=== PATIENT | male | born 1955 | race Caucasian/White ===

== ENCOUNTER 2023-03-04 09:13 | Observation (INO) | payer BC, MEDICAID ==
[2023-02-25 13:57] LABS: BASOPHILS # (AUTO) 0.1 X10'3 (0-0.2); BASOPHILS % (AUTO) 0.8 % (0-1); EOSINOPHILS # (AUTO) 0.1 X10'3 (0-0.9); EOSINOPHILS % (AUTO) 1.7 % (0-6); LYMPHOCYTES # (AUTO) 1.3 X10'3 (1.1-4.8); LYMPHOCYTES % (AUTO) 19.4 % (21-51); MEAN CORPUSCULAR HEMOGLOBIN 29.1 PG (27.0-31.0); MEAN CORPUSCULAR HGB CONC 32.4 g/dL (33.0-36.5); MEAN CORPUSCULAR VOLUME 89.9 FL (78-98); MEAN PLATELET VOLUME 8.9 FL (7.4-10.4); MONOCYTES # (AUTO) 0.5 X10'3 (0-0.9); NEUTROPHILS # (AUTO) 4.7 X10'3 (1.8-7.7); NEUTROPHILS % (AUTO) 70.1 % (42-75); PRE OP HEMATOCRIT 43.5 % (42.0-52.0); PRE OP HEMOGLOBIN 14.1 g/dL (14.0-17.9); PRE OP PLATELET COUNT 284 X10'3 (140-440); PRE OP WHITE BLOOD COUNT 6.7 10'3 (4.8-10.8); RED BLOOD COUNT 4.84 X10'6 (4.70-6.10); RED CELL DISTRIBUTION WIDTH 14.3 % (11.5-14.5)
[2023-02-25 14:13] LABS: ALBUMIN 4.1 G/DL (3.4-5.0); ALBUMIN/GLOBULIN RATIO 1.1 (1.1-1.5); ALKALINE PHOSPHATASE 95 IU/L (46-116); BLOOD UREA NITROGEN 36 MG/DL (7-18); BUN/CREATININE RATIO 30.3 (10.0-20.0); CALCIUM 9.6 MG/DL (8.5-10.1); CREATININE 1.19 MG/DL (0.60-1.10); PRE OP ALT 22 U/L (30-65); PRE OP AST 16 U/L (10-37); PRE OP BILIRUB, TOTAL 0.3 MG/DL (0.0-1.0); PRE OP GLUCOSE 108 MG/DL (70-104); TOTAL CARBON DIOXIDE 28.4 MMOL/L (24-32); TOTAL PROTEIN 7.7 G/DL (6.4-8.2); eGFR 61 ML/MIN
[2023-02-25 14:16] LABS: CHLORIDE 102 MMOL/L (99-107); PRE OP ANION GAP 9 (8-16); PRE OP POTASSIUM 4.3 MMOL/L (3.4-5.1); PRE OP SODIUM 139 MMOL/L (135-145)
[2023-03-04] VITALS (23 sets, daily range): BP systolic 98–150; BP diastolic 62–82; PULSE 68–104; RESP 10–25; TEMP 98–98.7; O2SAT 88–98
[~2023-03-04] VITALS: Ht 160 cm; Wt 97.0 kg
[~2023-03-04 09:13] MED LIST: AMLO5TAB16 PO; LISI1TAB53 PO; cefazolin 2gm/D5W 100mL 100 ML IV ONE; famotidine 20mg tablet PO ONE; ringers solution, lacted 1,000 ML IV SCH; tranexamic acid 650mg tablet PO ONE; vancomycin 1,500 MG in NS 300ml IV soln IV ONE
--- NOTE | 2023-03-04 10:03 | NUR ---
REVIEWED CHART FOR SURGERY. THE EKG IN THE CHART IS DATED 08/14/[address] WITH A [address] DR. SAUNDERS HAS APPROVED THE EKG EVEN THOUGH IT IS PAST 6 MONTHS. NO NEW EKG ORDERED. SURGERY DATE 03-04-23
--- NOTE | 2023-03-04 11:00 | NUR ---
PULSES PRESENT AND MARKED. PATIENT READ BROCHURE AND USED MUPIROCIN OINTMENT DIRECTED.
[2023-03-04] MEDS ORDERED: BUPIVACAINE/MELOXICAM 14 ML VIAL IL ONE (14:07)
[2023-03-04] MEDS ORDERED: MIDAZolam 1 MG/ML 5ML VIAL ONE (14:19)
[2023-03-04] MEDS ORDERED: fentaNYL/PF 50MCG/1 ML 2ML syringe ONE ×2 (14:19→16:06)
[2023-03-04] MEDS ORDERED: sevoflurane 250ml liquid IH ONE (15:05)
[2023-03-04] MEDS ORDERED: ePHEDrine 50MG/ML INJ. ONE (15:05)
[2023-03-04] MEDS ORDERED: morphine 2 MG/ML inj. syringe IV PRN (15:10)
[2023-03-04] MEDS ORDERED: morphine 4 MG/ML inj SYRINge IV PRN (15:10)
[2023-03-04] MEDS ORDERED: ringers solution, lacted 1,000 ML IV SCH (15:10)
[2023-03-04] MEDS ORDERED: ondansetron/PF 4mg/2ml inj IV PRN ×2 (15:10→17:55)
[2023-03-04] MEDS ORDERED: meperidine/PF 25mg/ml syringe IV PRN ×3 (15:10)
[2023-03-04] MEDS ORDERED: proCHLORperazine 10 MG/2 ml inj IV PRN (15:10)
[2023-03-04] MEDS ORDERED: ROPIVAcaine 0.5% (5mg/ml) 30ml vial ONE (17:06)
[2023-03-04] MEDS ORDERED: acetaminophen 1,000mg/100ml IV 100 ML IV ONE (17:06)
[2023-03-04] MEDS ORDERED: rocuronium 10mg/ml inj IV ONE (17:06)
[2023-03-04] MEDS ORDERED: glycopyrrolate 0.2mg/ml inj ONE (17:06)
[2023-03-04] MEDS ORDERED: dexamethasone sod phosphate 4mg/ml inj. ONE (17:06)
[2023-03-04] MEDS ORDERED: neostigmine methylsulfate 1 MG/ML 10ml vial ONE (17:06)
[2023-03-04] MEDS ORDERED: propofol inj 20 ML IV ONE (17:06)
[2023-03-04] MEDS ORDERED: ondansetron/PF 4mg/2ml inj ONE (17:06)
--- NOTE | 2023-03-04 17:51 | NUR ---
Received from OR via HOSPITAL BED TO RR 7, accompanied by Anesthesijere MUJICA and report given by Anesthesiologist. PT PRESENTS ON 10L VIA MASK. PT IS NOT MOVING AIR WELL, DR MUJICA PLACED A TRUMPET IN THE LEFT NARE WHICH INCREASED AIR MOVEMENT. NON-REBREATHER WAS USED WITH POSITIVE RESULTS. VSS. LR RUNNING THRU PIV. DRESSING TO LEFT KNEE IS CDI AND WRAP AND ICE APPLIED. PALPABLE BILATERAL PEDAL PULSES. ORDER FROM DR MUJICA FOR RT TX, CONTINUOS PULSE OX ON THE FLOOR, AND ISTAT.
[2023-03-04] MEDS ORDERED: HYDROmorphone inj. 0.5 MG/0.5 ML DISP.SYRIN IV PRN (17:55)
[2023-03-04] MEDS ORDERED: naloxone 0.4 mg/ml inj IV PRN (17:55)
[2023-03-04] MEDS ORDERED: HYDROmorphone 1 mg/ml syringe IV PRN (17:55)
[2023-03-04] MEDS ORDERED: oxyCODONE IR 5mg (immed. release) tablet PO PRN ×2 (17:55)
[2023-03-04] MEDS ORDERED: acetaminophen 325mg tablet PO PRN (17:55)
[2023-03-04] MEDS ORDERED: HYDROcodone/acetaminophen 10/325mg tab PO PRN ×2 (17:55)
[2023-03-04] MEDS ORDERED: magnesium hydroxide 30ml (MOM) UD suspension PO PRN (17:55)
[2023-03-04] MEDS ORDERED: diphenhydrAMINE 25mg capsule PO PRN ×2 (17:55)
[2023-03-04] MEDS ORDERED: bisacodyl 10mg suppository rectal RC PRN (17:55)
[2023-03-04] MEDS ORDERED: ipratropium/albuterol 3ml nebule NEB STA (18:09)
[2023-03-04 18:28] LABS: ISTAT CREATININE 1.2 mg/dL (0.8-1.3); ISTAT HGB 12.9 g/dl (14.0-17.9); ISTAT IONIZED CALCIUM 1.19 mmol/L (1.03-1.32); ISTAT K 4.3 mmol/L (3.5-5.1); POC BUN/CREATININE RATIO 25.8 (5.4-32.0)
[2023-03-04] MEDS ORDERED: vancomycin/NS 1 GM ADD-VANTAGE 250 ML IV SCH (20:00)
--- NOTE | 2023-03-04 20:01 | NUR ---
PT STABLE FOR TRANSFER PER MD ORDER. REPORT GIVEN TO PRIMARY NURSE CHRISTIAN GONZALES, ALL QUESTIONS, COMMENTS, AND CONCERNS WERE ANSWERED AT THIS TIME. PT DENIES PAIN AND VSS ON 4L VIA NC. ADVISED PRIMARY NURSE OF PATIENT NEEDING CONTINOUS PULSE OXIMETRY. SHE VERBALIZED BILATERAL PEDAL PULSES REMAINS STRONG AND PALPABLE. LEFT KNEE DRESSING AND WRAP REMAINS CDI AND ICE IS IN PLACE. PT IS ABLE TO MOVE ALL EXTREMITIES. ALL PERSONAL BELONGINGS WERE SENT WITH PATIENT. PATIENT WAS HOOKED UP TO POST OP VITALS, CALL LIGHT IN HAND, BLL. PRIMARY NURSE WAS IN ROOM DURING TRANSFER.
--- NOTE | 2023-03-04 20:05 | NUR ---
PATIENT ADMITTED TO ROOM 4010A FROM RECOVERY ROOM AFTER LEFT TOTAL KNEE ARTHROPLASTY WAS DONE BY DR. PARKER. PLACED COMFORTABLE IN BED. VITAL SIGNS MONITORED PER POST OP PROTOCOL.
[2023-03-04] MEDS ORDERED: sennosides 8.6mg tablet PO SCH (21:00)
[2023-03-04] MEDS ORDERED: amLODIPine 5mg tablet PO SCH (21:00)
[2023-03-04] MEDS: acetaminophen 325mg tablet PO SCH (21:21)
[2023-03-04] MEDS: potassium cl 20mEq in 1/2 NS 1,000 ML IV SCH (21:22)
[2023-03-05] VITALS: BP 110/68; PULSE 77; RESP 18; O2SAT 93
[2023-03-05] MEDS: ceFAZolin/D5W- 1GM premix 50 ML IV SCH ×2 (00:31→08:41)
[2023-03-05] MEDS: potassium cl 20mEq in 1/2 NS 1,000 ML IV SCH ×2 (01:55→10:24)
[2023-03-05 02:00] VITALS: BP 128/68; PULSE 73; RESP 18; TEMP 98.1; O2SAT 94
[2023-03-05] MEDS: acetaminophen 325mg tablet PO SCH ×2 (02:00→08:16)
[2023-03-05 05:58] LABS: BASOPHILS % (AUTO) 0.4 % (0-1); EOSINOPHILS % (AUTO) 0 % (0-6); HEMATOCRIT 37.1 % (42.0-52.0); HEMOGLOBIN 12.1 g/dl (14.0-17.9); LYMPHOCYTES # (AUTO) 0.5 X10'3 (1.1-4.8); LYMPHOCYTES % (AUTO) 4.8 % (21-51); MEAN CORPUSCULAR HEMOGLOBIN 29.3 PG (27.0-31.0); MEAN CORPUSCULAR HGB CONC 32.6 g/dL (33.0-36.5); MEAN PLATELET VOLUME 8.6 FL (7.4-10.4); MONOCYTES # (AUTO) 0.7 X10'3 (0-0.9); MONOCYTES % (AUTO) 5.9 % (2-12); NEUTROPHILS % (AUTO) 88.9 % (42-75); PLATELET COUNT 266 X10'3 (140-440); RED BLOOD COUNT 4.12 X10'6 (4.70-6.10); RED CELL DISTRIBUTION WIDTH 14.5 % (11.5-14.5); WHITE BLOOD COUNT 11.2 X10'3 (4.5-11.0)
[2023-03-05 06:00] VITALS: BP 117/71; PULSE 84; RESP 18; TEMP 97.6; O2SAT 93
--- NOTE | 2023-03-05 06:30 | NUR ---
Problems reprioritized. Patient report given, questions answered & plan of care reviewed with STEPHANY ABARCA.
[2023-03-05 06:40] LABS: ANION GAP 9 (8-16); CHLORIDE 103 MMOL/L (99-107); SODIUM 137 MMOL/L (135-145); TOTAL CARBON DIOXIDE 25.2 MMOL/L (24-32)
[2023-03-05 08:00] VITALS: RESP 15; O2SAT 96
[2023-03-05] MEDS ORDERED: HYDROchlorothiazide 25mg tablet PO SCH (08:00)
[2023-03-05] MEDS ORDERED: lisinopril 20mg tablet PO SCH (08:00)
[2023-03-05] MEDS ORDERED: aspirin 325mg tablet PO SCH (08:30)
[2023-03-05 10:00] VITALS: BP 130/89; PULSE 70; RESP 15; TEMP 97.7; O2SAT 96
--- NOTE | 2023-03-05 11:57 | NUR ---
Joint surgery consult: Pt s/p L knee surgery this admit per EMR. Pt seen by CORTEZ at bedside for written/verbal high protein diet ed w/ RD contact information provided. CORTEZ encouraged pt to contact dietitian's office if further nutrition questions/concerns. Addendum: 03/05/23 at [address] Amended: Links added.
--- NOTE | 2023-03-05 13:00 | NUR ---
I have reviewed and agree with interventions, assessments, and documentation by Ayesha Guido LVN.
--- NOTE | 2023-03-05 13:41 | NUR ---
Patient discharged home via pov with son. all personal belongings sent with, edu provided, questions answered. Patient alert and appropriate at the time of discharge.
[2023-03-06] MEDS ORDERED: acetaminophen 325mg tablet PO PRN (17:55)
== END 2023-03-05 13:40 | disposition home or self-care (01) ==
LOC: PAS 09:13 → ORTHO 4S 20:06 → UNDOADMOB 20:09
PROVIDERS: ADMIT Orthopaedic Surgery; ATTEND Orthopaedic Surgery
DX: M17.0 Bilateral primary osteoarthritis of knee (principal); M47.812 Spondylosis without myelopathy or radiculopathy, cervical region; M50.30 Other cervical disc degeneration, unspecified cervical region; M54.12 Radiculopathy, cervical region; I10 Essential (primary) hypertension; E66.01 Morbid (severe) obesity due to excess calories; Z79.899 Other long term (current) drug therapy
CPT/HCPCS: 20985; 27447; 36415; 80047; 80051; 80053; 82948; 85025; 87081; 94640; 94760; 96365; 96366; 96367; 97110; 97116; 97161; C1713; C1776; G0378; J0131; J0690; J1100; J2250; J2405; J2704; J2710; J2795; J3010; J3370; J3480; J3490; J7120; A4215; A4615; A7000

== ENCOUNTER → 2023-08-01 | Outpatient (CLI) | payer BC, MEDICAID ==
[~2023-08-01] VITALS: Ht 162.6 cm; Wt 99.8 kg
[2023-08-01 16:43] LABS: BASOPHILS # (AUTO) 0.1 X10'3 (0-0.2); BASOPHILS % (AUTO) 0.7 % (0-1); EOSINOPHILS # (AUTO) 0.2 X10'3 (0-0.9); EOSINOPHILS % (AUTO) 2.3 % (0-6); LYMPHOCYTES # (AUTO) 1.1 X10'3 (1.1-4.8); LYMPHOCYTES % (AUTO) 15.9 % (21-51); MEAN CORPUSCULAR HEMOGLOBIN 28.5 PG (27.0-31.0); MEAN CORPUSCULAR HGB CONC 32.1 g/dL (33.0-36.5); MEAN CORPUSCULAR VOLUME 88.8 FL (78-98); MEAN PLATELET VOLUME 8.9 FL (7.4-10.4); MONOCYTES # (AUTO) 0.5 X10'3 (0-0.9); MONOCYTES % (AUTO) 7.4 % (2-12); NEUTROPHILS # (AUTO) 5.2 X10'3 (1.8-7.7); NEUTROPHILS % (AUTO) 73.7 % (42-75); PRE OP HEMATOCRIT 43.6 % (42.0-52.0); PRE OP PLATELET COUNT 281 X10'3 (140-440); PRE OP WHITE BLOOD COUNT 7.1 10'3 (4.8-10.8); RED BLOOD COUNT 4.91 X10'6 (4.70-6.10); RED CELL DISTRIBUTION WIDTH 15.9 % (11.5-14.5)
[2023-08-01 17:20] LABS: ALBUMIN 4.2 G/DL (3.4-5.0); ALBUMIN/GLOBULIN RATIO 1.2 (1.1-1.5); ALKALINE PHOSPHATASE 91 IU/L (46-116); BLOOD UREA NITROGEN 33 MG/DL (7-18); BUN/CREATININE RATIO 27.3 (10.0-20.0); CALCIUM 9.2 MG/DL (8.5-10.1); CHLORIDE 105 MMOL/L (99-107); CREATININE 1.21 MG/DL (0.60-1.10); PRE OP ALT 17 U/L (30-65); PRE OP ANION GAP 9 (8-16); PRE OP AST 18 U/L (10-37); PRE OP BILIRUB, TOTAL 0.4 MG/DL (0.0-1.0); PRE OP GLUCOSE 100 MG/DL (70-104); PRE OP POTASSIUM 4.6 MMOL/L (3.4-5.1); PRE OP SODIUM 142 MMOL/L (135-145); TOTAL PROTEIN 7.7 G/DL (6.4-8.2); eGFR 60 ML/MIN
== END | disposition home or self-care (01) ==
LOC: LAB 13:56 → EDSTATUS 08-15 14:30
PROVIDERS: ATTEND Orthopaedic Surgery
DX: Z01.818 Encounter for other preprocedural examination (principal); M25.562 Pain in left knee; M25.362 Other instability, left knee; Z96.652 Presence of left artificial knee joint
CPT/HCPCS: 36415; 71046; 80053; 85025; 87081; J0690; J3370; J7120

== ENCOUNTER 2023-11-04 06:00 | Inpatient (IN) | payer BC, MEDICAID ==
[2023-10-29 16:05] LABS: BASOPHILS % (AUTO) 0.6 % (0-1); EOSINOPHILS # (AUTO) 0.1 X10'3 (0-0.9); EOSINOPHILS % (AUTO) 1.4 % (0-6); HEMATOCRIT 40.3 % (42.0-52.0); HEMOGLOBIN 13.2 g/dl (14.0-17.9); MEAN CORPUSCULAR HEMOGLOBIN 29.9 PG (27.0-31.0); MEAN CORPUSCULAR HGB CONC 32.8 g/dL (33.0-36.5); MEAN PLATELET VOLUME 8.5 FL (7.4-10.4); MONOCYTES # (AUTO) 0.5 X10'3 (0-0.9); MONOCYTES % (AUTO) 7.2 % (2-12); NEUTROPHILS # (AUTO) 5.7 X10'3 (1.8-7.7); NEUTROPHILS % (AUTO) 76.8 % (42-75); PLATELET COUNT 294 X10'3 (140-440); RED BLOOD COUNT 4.43 X10'6 (4.70-6.10); RED CELL DISTRIBUTION WIDTH 15.3 % (11.5-14.5); WHITE BLOOD COUNT 7.5 X10'3 (4.5-11.0)
[2023-10-29 16:19] LABS: ALANINE AMINOTRANSFERASE 26 U/L (12-78); ALBUMIN 4.1 G/DL (3.4-5.0); ALBUMIN/GLOBULIN RATIO 1.2 (1.1-1.5); ALKALINE PHOSPHATASE 89 IU/L (46-116); ANION GAP 8 (8-16); ASPARTATE AMINO TRANSFERASE 16 U/L (10-37); BILIRUBIN,TOTAL 0.3 MG/DL (0.1-1.0); BLOOD UREA NITROGEN 32 MG/DL (7-18); BUN/CREATININE RATIO 26.9 (10.0-20.0); CALCIUM 8.9 MG/DL (8.5-10.1); CHLORIDE 107 MMOL/L (99-107); CREATININE 1.19 MG/DL (0.60-1.10); GLUCOSE 91 MG/DL (70-104); POTASSIUM 4.5 MMOL/L (3.5-5.1); SODIUM 143 MMOL/L (135-145); TOTAL CARBON DIOXIDE 28.5 MMOL/L (24-32); TOTAL PROTEIN 7.6 G/DL (6.4-8.2); eGFR 61 ML/MIN
[2023-11-04] VITALS (28 sets, daily range): BP systolic 112–166; BP diastolic 64–104; PULSE 45–125; RESP 11–24; TEMP 97.1–98; O2SAT 62–97
[~2023-11-04] VITALS: Ht 162.6 cm; Wt 99.7 kg
[2023-11-04] MEDS: cefazolin 2gm/D5W 100mL 100 ML IV ONE (05:30)
[2023-11-04] MEDS: famotidine 20mg tablet PO ONE (05:30)
[~2023-11-04 06:00] MED LIST changes: -cefazolin 2gm/D5W 100mL 100 ML IV ONE; -famotidine 20mg tablet PO ONE; -ringers solution, lacted 1,000 ML IV SCH; -tranexamic acid 650mg tablet PO ONE; -vancomycin 1,500 MG in NS 300ml IV soln IV ONE
[2023-11-04] MEDS: tranexamic acid 650mg tablet PO ONE (09:01)
[2023-11-04] MEDS: ringers solution, lacted 1,000 ML IV SCH ×2 (09:03→14:36)
[2023-11-04] MEDS: vancomycin/NS 1 GM in NS 250 ML IV ONE (09:03)
[2023-11-04] MEDS ORDERED: MIDAZolam 1 MG/ML 5ML VIAL ONE (09:24)
[2023-11-04] MEDS ORDERED: fentaNYL/PF 50MCG/1 ML 2ML syringe ONE (09:24)
[2023-11-04] MEDS ORDERED: propofol inj 20 ML IV ONE (09:24)
[2023-11-04] MEDS ORDERED: BUPIVAcaine/dex-water/PF 7.5 mg/ml 2ml ampul ONE (09:33)
[2023-11-04] MEDS: ROPIVAcaine 0.5% (5mg/ml) 30ml vial ONE (10:58)
[2023-11-04] MEDS ORDERED: ROPIVAcaine 0.5% (5mg/ml) 30ml vial ONE (11:57)
[2023-11-04] MEDS ORDERED: diphenhydrAMINE 25mg capsule PO PRN ×2 (12:20)
[2023-11-04] MEDS ORDERED: acetaminophen 325mg tablet PO PRN (12:20)
[2023-11-04] MEDS ORDERED: bisacodyl 10mg suppository rectal RC PRN (12:20)
[2023-11-04] MEDS ORDERED: oxyCODONE IR 5mg (immed. release) tablet PO PRN (12:20)
[2023-11-04] MEDS ORDERED: naloxone 0.4 mg/ml inj IV PRN (12:20)
[2023-11-04] MEDS ORDERED: HYDROmorphone 1 mg/ml syringe IV PRN (12:20)
[2023-11-04] MEDS ORDERED: magnesium hydroxide 30ml (MOM) UD suspension PO PRN (12:20)
[2023-11-04] MEDS ORDERED: ondansetron/PF 4mg/2ml inj IV PRN (12:30)
[2023-11-04] MEDS ORDERED: morphine 4 MG/ML inj SYRINge IV PRN (12:30)
[2023-11-04] MEDS ORDERED: labetalol 20mg/4ml (5mg/ml) syringe IV PRN (12:30)
[2023-11-04] MEDS ORDERED: morphine 2 MG/ML inj. syringe IV PRN (12:30)
[2023-11-04] MEDS ORDERED: meperidine/PF 25mg/ml syringe IV PRN ×2 (12:30)
[2023-11-04] MEDS: meperidine/PF 25mg/ml syringe IV PRN (12:56)
[2023-11-04] MEDS: HYDROmorphone inj. 0.5 MG/0.5 ML DISP.SYRIN IV PRN (13:10)
[2023-11-04] MEDS: acetaminophen 325mg tablet PO SCH (14:00)
[2023-11-04] MEDS: aspirin 325mg tablet PO SCH (14:36)
[2023-11-04] MEDS: potassium cl 20mEq in 1/2 NS 1,000 ML IV SCH (14:36)
[2023-11-04] MEDS: ondansetron/PF 4mg/2ml inj IV PRN (14:41)
[2023-11-04] MEDS: ceFAZolin/D5W- 1GM premix 50 ML IV SCH (16:43)
[2023-11-04] MEDS: vancomycin/NS 1 GM ADD-VANTAGE 250 ML IV SCH (20:50)
[2023-11-04] MEDS: amLODIPine 5mg tablet PO SCH (20:50)
[2023-11-04] MEDS: sennosides 8.6mg tablet PO SCH (20:50)
[2023-11-05] VITALS (9 sets, daily range): BP systolic 122–146; BP diastolic 66–91; PULSE 52–99; RESP 10–19; TEMP 97.4–98; O2SAT 93–98
[2023-11-05] MEDS: oxyCODONE IR 5mg (immed. release) tablet PO PRN (05:22)
[2023-11-05 07:34] LABS: BASOPHILS % (AUTO) 0.4 % (0-1); EOSINOPHILS % (AUTO) 0.1 % (0-6); HEMATOCRIT 33.8 % (42.0-52.0); HEMOGLOBIN 11.4 g/dl (14.0-17.9); LYMPHOCYTES # (AUTO) 0.6 X10'3 (1.1-4.8); LYMPHOCYTES % (AUTO) 8.1 % (21-51); MEAN CORPUSCULAR HEMOGLOBIN 30.4 PG (27.0-31.0); MEAN CORPUSCULAR HGB CONC 33.6 g/dL (33.0-36.5); MEAN CORPUSCULAR VOLUME 90.4 FL (78-98); MEAN PLATELET VOLUME 8.4 FL (7.4-10.4); MONOCYTES # (AUTO) 0.8 X10'3 (0-0.9); MONOCYTES % (AUTO) 10.5 % (2-12); NEUTROPHILS # (AUTO) 6.3 X10'3 (1.8-7.7); NEUTROPHILS % (AUTO) 80.9 % (42-75); PLATELET COUNT 234 X10'3 (140-440); RED BLOOD COUNT 3.74 X10'6 (4.70-6.10); RED CELL DISTRIBUTION WIDTH 14.9 % (11.5-14.5); WHITE BLOOD COUNT 7.7 X10'3 (4.5-11.0)
[2023-11-05 08:04] LABS: ANION GAP 9 (8-16); CHLORIDE 103 MMOL/L (99-107); POTASSIUM 4.1 MMOL/L (3.5-5.1); SODIUM 139 MMOL/L (135-145); TOTAL CARBON DIOXIDE 27.3 MMOL/L (24-32)
[2023-11-05] MEDS: HYDROchlorothiazide 25mg tablet PO SCH (08:58)
[2023-11-05] MEDS: lisinopril 20mg tablet PO SCH (08:58)
[2023-11-05 15:42] LABS: PRO BRAIN NATRIURETIC PEPTIDE 196 PG/ML (0-125)
[2023-11-05] MEDS: celeCOXIB 100mg capsule PO SCH (19:54)
[2023-11-05] MEDS: methylPREDNISolone sod succ 125mg/2ml vial IV ONE (19:55)
[2023-11-05] MEDS: furosemide 40mg/4ml inj IV ONE (19:55)
[2023-11-05] MEDS: furosemide 20 MG/2 ML vial IV ONE (21:00)
[2023-11-05] MEDS: magnesium 2GM in 50ml NS 50 ML IV ONE (22:23)
[2023-11-06 01:20] VITALS: PULSE 96; RESP 18; O2SAT 98
[2023-11-06 03:24] VITALS: PULSE 93; RESP 18; O2SAT 94
[2023-11-06 06:00] VITALS: BP 134/94; PULSE 103; RESP 18; TEMP 96.9; O2SAT 95
[2023-11-06 06:55] VITALS: O2SAT 95
[2023-11-06 07:38] LABS: BASOPHILS % (AUTO) 0.2 % (0-1); EOSINOPHILS % (AUTO) 0 % (0-6); HEMATOCRIT 34.7 % (42.0-52.0); HEMOGLOBIN 11.5 g/dl (14.0-17.9); LYMPHOCYTES # (AUTO) 0.5 X10'3 (1.1-4.8); LYMPHOCYTES % (AUTO) 5.1 % (21-51); MEAN CORPUSCULAR HEMOGLOBIN 29.8 PG (27.0-31.0); MEAN CORPUSCULAR HGB CONC 33.1 g/dL (33.0-36.5); MEAN PLATELET VOLUME 8.5 FL (7.4-10.4); MONOCYTES # (AUTO) 0.8 X10'3 (0-0.9); MONOCYTES % (AUTO) 8.3 % (2-12); NEUTROPHILS # (AUTO) 8.2 X10'3 (1.8-7.7); NEUTROPHILS % (AUTO) 86.4 % (42-75); PLATELET COUNT 235 X10'3 (140-440); RED BLOOD COUNT 3.86 X10'6 (4.70-6.10); RED CELL DISTRIBUTION WIDTH 14.7 % (11.5-14.5); WHITE BLOOD COUNT 9.5 X10'3 (4.5-11.0)
[2023-11-06 07:52] LABS: ALBUMIN 3.2 G/DL (3.4-5.0); ANION GAP 9 (8-16); BLOOD UREA NITROGEN 22 MG/DL (7-18); BUN/CREATININE RATIO 19.8 (10.0-20.0); CALCIUM 8.4 MG/DL (8.5-10.1); CHLORIDE 100 MMOL/L (99-107); CREATININE 1.11 MG/DL (0.60-1.10); GLUCOSE 127 MG/DL (70-104); MAGNESIUM 2.6 MG/DL (1.5-2.4); POTASSIUM 4.2 MMOL/L (3.5-5.1); SODIUM 138 MMOL/L (135-145); TOTAL CARBON DIOXIDE 29.3 MMOL/L (24-32); eCRCL 54 ML/MIN; eGFR 66 ML/MIN
[2023-11-06] MEDS ORDERED: acetaminophen 325mg tablet PO PRN (08:25)
[2023-11-06 12:24] VITALS: BP 140/88; PULSE 88; RESP 17; TEMP 98.1; O2SAT 93
[2023-11-06] MEDS ORDERED: iohexol 350MG/ML 100ml bottle IV ONE (14:20)
[2023-11-06] MEDS ORDERED: AMLO5TAB16 PO (17:05)
[2023-11-06] MEDS ORDERED: LISI1TAB53 PO (17:05)
[2023-11-06] MEDS ORDERED: APIX2.5T PO (17:22)
[2023-11-06] MEDS ORDERED: LISI20TA28 PO (17:23)
== END 2023-11-06 19:10 | disposition home or self-care (01) | DRG 466 ==
LOC: PAS IN 06:00 → ORTHO 4S 14:34
PROVIDERS: ADMIT Orthopaedic Surgery; ATTEND Orthopaedic Surgery
PROC: 0SRW0J9 Replacement of Left Knee Joint, Tibial Surface with Synthetic Substitute, Cemented, Open Approach (ICD-10-PCS; 2023-11-04)
PROC: 5A09357 Assistance with Respiratory Ventilation, Less than 24 Consecutive Hours, Continuous Positive Airway Pressure (ICD-10-PCS; 2023-11-04)
PROC: 0SPW0JZ Removal of Synthetic Substitute from Left Knee Joint, Tibial Surface, Open Approach (ICD-10-PCS; principal; 2023-11-04 09:33)
PROC: B32T1ZZ Computerized Tomography (CT Scan) of Left Pulmonary Artery using Low Osmolar Contrast (ICD-10-PCS; 2023-11-06)
PROC: B3201ZZ Computerized Tomography (CT Scan) of Thoracic Aorta using Low Osmolar Contrast (ICD-10-PCS; 2023-11-06)
PROC: B32S1ZZ Computerized Tomography (CT Scan) of Right Pulmonary Artery using Low Osmolar Contrast (ICD-10-PCS; 2023-11-06)
DX: T84.023A Instability of internal left knee prosthesis, initial encounter (principal); J96.01 Acute respiratory failure with hypoxia; Z96.652 Presence of left artificial knee joint; I10 Essential (primary) hypertension; X58.XXXA Exposure to other specified factors, initial encounter; G47.33 Obstructive sleep apnea (adult) (pediatric); Y83.8 Other surgical procedures as the cause of abnormal reaction of the patient, or of later complication, without mention of misadventure at the time of the procedure; E66.9 Obesity, unspecified; Z68.37 Body mass index [BMI] 37.0-37.9, adult; Y92.89 Other specified places as the place of occurrence of the external cause; Z88.2 Allergy status to sulfonamides; Z88.8 Allergy status to other drugs, medicaments and biological substances
CPT/HCPCS: 36415; 71046; 71275; 80048; 80051; 80053; 82948; 83735; 83880; 85025; 87070; 87075; 87081; 94660; 94760; 97116; 97161; 97530; A4615; A4618; A7000; C1713; C1758; C1776; G0378; J0690; J1170; J1940; J2175; J2250; J2405; J2704; J2795; J2919; J3010; J3370; J3475; J3480; J3490; J7030; J7120; Q9967

== ENCOUNTER 2023-11-13 17:32 | Emergency (ER) | payer BC, MEDICAID ==
[~2023-11-13] VITALS: Ht 162.6 cm; Wt 100.0 kg
[~2023-11-13 17:32] MED LIST changes: +APIX2.5T PO; +LISI20TA28 PO
[2023-11-13 17:58] VITALS: TEMP 98.9
[2023-11-13 22:30] VITALS: BP 131/60; PULSE 82; RESP 17; O2SAT 99
[2023-11-14 00:40] LABS: COLOR,SYNOVIAL FLUID RED
[2023-11-14 00:41] LABS: APPEARANCE,SYNOVIAL FLUID BLOODY; SYN WBC 125 /CU MM (0-200)
[2023-11-14 00:43] LABS: SYN RBC 95000 /CU MM (0)
[2023-11-14 07:58] LABS: LYMPHOCYTES,SYNOVIAL FLUID 19 % (0-75); MONOCYTES,SYNOVIAL FLUID 10 % (0-0); NEUTROPHILS,SYNOVIAL FLUID 71 % (0-25)
== END 2023-11-13 23:30 | disposition home or self-care (01) ==
LOC: ER 17:32
DX: M25.062 Hemarthrosis, left knee (principal); M79.89 Other specified soft tissue disorders; Z88.2 Allergy status to sulfonamides; Z79.899 Other long term (current) drug therapy
CPT/HCPCS: 20610; 87070; 89051; 99285; A6449